=== PATIENT | female | born 1950 | race American Indian/Alaskan Native ===

== ENCOUNTER 2017-11-03 12:42 | Outpatient (CLI) | payer MEDICARE ==
--- NOTE | 2017-11-03 16:12 | Mammography Report ---
Screening mammogram: There is a circumscribed nodule in the upper-outer right breast. There is a biopsy marker slightly from the nodule but presumably related to the biopsy of this nodule. The remainder of the breast pattern bilaterally is heterogeneous and symmetrically distributed. No other significant findings. The patient refused to release of prior mammograms for comparison. CAD used. Impression: No suspicious findings. Comparison however would be desirable if you can have this patient sign a release. Recommendation: Annual mammogram followup. BI-RADS CATEGORY: 2 = Benign ACR BI-RADS MAMMOGRAPHIC CODES: 0 = Needs additional imaging evaluation; 1 = Negative; 2 = Benign; 3 = Probably benign; 4 = Suspicious; 5 = Malignant; 6 = Known biopsy-proven malignancy COMMENT: 1. Dense breast tissue, i.e., adenosis, fibrocystic changes, etc., may obscure an underlying neoplasm. 2. Approximately 10% of cancers are not detected with mammography. 3. A negative mammography report should not delay biopsy if a clinically suspicious mass is present. The
--- NOTE | 2017-11-03 16:16 | Mammography Report ---
BONE DENSITY STUDY: Postmenopausal osteoporosis screening. DEFINITIONS: BMD = Bone Mineral Density T-score = BMD related to mean peak bone mass of young adult (mean expressed in Standard Deviation) Z-score = Age matched BMD expressed in SD World Health Organization (WHO) Diagnostic Criteria Normal T-score > -1 SD Osteopenia T-score between -1 and -2.4 SD Osteoporosis T-score -2.5 SD or below FINDINGS: The weighted average BMD of lumbar spine L1-L4 is 0.928 with a T-score of -2.0. The weighted average BMD of the left hip is 1.002 with a T-score of -0.2. The femoral neck BMD is 0.744 with a T. value score of -1.5. Comparison is made to prior exam in June 2015. The overall bone density of the lumbar spine slightly worsened however the overall density of the hip slightly improved. IMPRESSION: The patient's average T-score is diagnostic for osteopenia and average relative risk for fracture. NOTE: BMD is not the only risk factor for fracture; also consider factors such as the patient's age, risk of falling, previous osteoporotic fracture, family history of osteoporotic fractures, current smoker, and low body weight. Benjamin's triangle is a region of interest in femur, predominantly of trabecular bone. It is not a true anatomic site, and [facility] does not recommend its use clinically.
== END 2017-11-03 12:43 | disposition home or self-care (01) ==
LOC: SPVWC 12:42
PROVIDERS: ATTEND Family Medicine
DX: Z12.31 Encounter for screening mammogram for malignant neoplasm of breast (principal); M85.80 Other specified disorders of bone density and structure, unspecified site; F17.210 Nicotine dependence, cigarettes, uncomplicated; Z78.0 Asymptomatic menopausal state
CPT/HCPCS: 77067; 77080